=== PATIENT | male | born 1985 | race African-American/Black ===

== ENCOUNTER 2017-04-21 12:39 | Emergency (ER) | payer OTHER ==
[~2017-04-21] VITALS: Ht 185.4 cm; Wt 70.0 kg
[2017-04-21 12:42] VITALS: Ht 185.4 cm; Wt 70.0 kg
[2017-04-21] MEDS ORDERED: SOD CHLORIDE 0.9% 1,000 ML IV STA (14:17)
[2017-04-21 15:03] LABS: BASOPHILS % 0.3 % (0.0-2.0); EOSINOPHILS # 0.2 10^3/ul (0.0-0.5); EOSINOPHILS % 1.9 % (0.0-7.0); HEMATOCRIT 39.9 % (42.0-52.0); HEMOGLOBIN 13.7 g/dl (14.0-18.0); LYMPHOCYTES # 1.2 10^3/ul (0.8-2.9); LYMPHOCYTES % 14.1 % (15.0-51.0); MEAN CORPUSCULAR HEMOGLOBIN 29.2 pg (29.0-33.0); MEAN CORPUSCULAR HGB CONC 34.3 g/dl (32.0-37.0); MEAN CORPUSCULAR VOLUME 85.1 fl (82.0-101.0); MEAN PLATELET VOLUME 11.5 fl (7.4-10.4); MONOCYTE # 0.7 10^3/ul (0.3-0.9); MONOCYTES % 7.7 % (0.0-11.0); NEUTROPHILS % 75.7 % (39.0-77.0); PLATELET COUNT 174 10^3/UL (140-415); RED BLOOD COUNT 4.69 10^6/ul (4.70-6.10); RED CELL DISTRIBUTION WIDTH 13.3 % (11.5-14.5); WHITE BLOOD COUNT 8.6 10^3/ul (4.8-10.8)
[2017-04-21 15:13] LABS: ADD UMIC YES; UR ASCORBIC ACID 40 mg/dL (NEGATIVE); UR BACTERIA FEW /HPF (NONE SEEN); UR BILIRUBIN (Dip) NEGATIVE (NEGATIVE); UR BLOOD (Dip) NEGATIVE (NEGATIVE); UR CLARITY SLIGHTLY CLOUDY (CLEAR); UR COLOR YELLOW (YELLOW); UR GLUCOSE (Dip) NEGATIVE (NEGATIVE); UR KETONES (Dip) NEGATIVE (NEGATIVE); UR LEUKOCYTE ESTERASE (Dip) NEGATIVE Leu/ul (NEGATIVE); UR MUCUS MANY /HPF (NONE SEEN); UR NITRITE (Dip) NEGATIVE (NEGATIVE); UR RBC 9 /HPF (0-5); UR SPECIFIC GRAVITY (Dip) 1.035 (1.003-1.030); UR TOTAL PROTEIN (Dip) 1+ mg/dl (NEGATIVE); UR UROBILINOGEN (Dip) 2+ mg/dL (NEGATIVE)
[2017-04-21 15:16] LABS: ALBUMIN 3.8 g/dl (3.3-4.9); ALBUMIN/GLOBULIN RATIO 1.26; BILIRUBIN,INDIRECT 1.2 mg/dl (0-1.1); BILIRUBIN,TOTAL 1.2 mg/dl (0.2-1.3); CALCIUM 8.9 mg/dl (8.4-10.2); CREATININE 1.08 mg/dl (0.61-1.24); POTASSIUM 3.8 mmol/L (3.5-5.1); TOTAL PROTEIN 6.8 g/dl (6.1-8.1)
--- NOTE | 2017-04-21 15:21 | RADRPT ---
PROCEDURE: Scrotal ultrasound CLINICAL INDICATION: Right scrotal pain TECHNIQUE: Scrotal ultrasound was performed in multiple obliquities. Lovelace scale and color imaging was performed. Images were reviewed on high resolution PACS monitors. COMPARISON: None available FINDINGS: The testes are normal in size and echogenicity. There is normal flow to the bilateral testes. No t esticular mass or cyst is identified. No hydroceles are seen. The epididymides are normal. The re is no evidence for a varicocele. IMPRESSION: 1. Unremarkable scrotal ultrasound. RPTAT: KK .Mike Coleman MD, MD Date Time Electronically viewed and signed by .Mike Coleman MD, on 04/21/2017 15:20 .B/
--- NOTE | 2017-04-21 15:23 | RADRPT ---
PROCEDURE: CT abdomen and pelvis without IV contrast. CLINICAL INDICATION: Abdomen pain. TECHNIQUE: CT scan of the abdomen and pelvis was performed on a [address] scanner. The patient is scanned without IV contrast. Coronal and sagittal reformatted images were obtained from the axia l source images. Images were reviewed on a high-resolution PACS workstation. Total radiation dose: Total CTDIvol: 6.7 mGy. Total DLP: 382 mGy-cm. One or more of the following d ose reduction techniques were used: automated exposure control, adjustment of the mA and/or kV accor ding to patient size, or use of iterative reconstruction technique. COMPARISON: None available. FINDINGS: CT abdomen: The lung bases are clear. The heart is not enlarged without pericardial thickening or effusion. The liver is normal in size and density without focal hepatic mass or biliary dilatation. The splee n is normal in size. The stomach is partially collapsed but is grossly unremarkable. The pancreas as visualized is normal. The gallbladder is normal and there is no evidence of biliary dilatation. The adrenal glands are symmetrical and normal. 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 The kidneys are symmet rically normal bilaterally. No renal obstructive uropathy or mass lesion is seen.. The aorta is normal in caliber. There is no retroperitoneal lymphadenopathy. The melvin hepatis reg ion is clear. The bowel and mesentery, as visualized, are equally unremarkable. CT pelvis: The appendix is normal in the right lower quadrant. The small bowel loops situated within the pelvi s are unremarkable. The pelvic organs are normal. The pelvic sidewalls and inguinal regions are cl ear. No mass, lymphadenopathy is seen. No acute inflammation seen. The urinary bladder is normal. The surrounding osseous structures are unremarkable. No osteolytic or osteoblastic lesion is detect ed. IMPRESSION: 1. Unremarkable CT abdomen and pelvis without IV contrast. RPTAT: GG .Lambert Kent MD, MD Date Time Electronically viewed and signed by .Lambert Kent MD, on 04/21/2017 15:22 .Y/
[2017-04-21] MEDS ORDERED: IBUP-1542 PO (15:52)
[2017-04-21] MEDS ORDERED: HYDR-906 PO (15:52)
[2017-04-21] MEDS ORDERED: ONDA-43 PO (15:53)
--- NOTE | 2017-04-21 16:17 | ERD ---
ER Documentation Chief Complaint Date/Time DATE: 04/21/17 TIME: 16:11 Chief Complaint abd pain since yesterday,sent by urgent care for ct scan said he has hernia HPI This is a 32-year-old male presents to the ER stating he has a hernia. Patient noticed a bump last night and try to put it in himself, he states that it did go in a little bit however he still has a bump. This morning area was extremely painful patient went to an urgent care, tried to reduce hernia however was not able to and became worried about incarceration or strangulation. Patient did have nausea however denies vomiting. Patient denies any fevers or chills. Patient was given 2 [place] in the urgent care and states that this has made his pain better now. Patient works lifting heavy objects, however is unsure if this is how he got hernia. ROS 12 point review of systems was done, all negative except per HPI. Medications Home Meds Active Scripts Ondansetron Hcl* (Zofran*) 4 Mg Tab, 4 MG PO Q4H Y for NAUSEA AND OR VOMITING for 10 Days, TAB Prov:FRANKLIN MACHADO 04/21/17 Hydrocodone/Acetaminophen ([place] 5-325 Tablet) 1 Each Tablet, 1 TAB PO Q6H Y for PAIN, #20 TAB Prov:FRANKLIN MACHADO 04/21/17 Ibuprofen* (Motrin*) 600 Mg Tab, 600 MG PO Q6, #30 TAB Prov:FRANKLIN MACHADO C 04/21/17 Allergies Allergies: Coded Allergies: No Known Allergy (Unverified , 04/21/17) PMhx/Soc Medical and Surgical Hx: pt denies Surgical Hx History of Surgery: No Anesthesia Reaction: No Hx Neurological Disorder: No Hx Respiratory Disorders: No Hx Cardiac Disorders: No Hx Psychiatric Problems: No Hx Miscellaneous Medical Probl: Yes (rt inguinal hernia ) Hx Alcohol Use: No Hx Substance Use: No Hx Tobacco Use: No Smoking Status: Never smoker Physical Exam Vitals Vital Signs Date Time Temp Pulse Resp B/P Pulse Ox O2 Delivery O2 Flow Rate FiO2 04/21/17 12:42 98.1 60 18 123/72 99 Physical Exam GENERAL: The patient is well developed and appropriate for usual state of health , in no apparent distress. HEENT: Atraumatic CHEST: Clear to auscultation bilaterally. There are no rales, wheezes or rhonchi. HEART: Regular rate and rhythm. No murmurs, clicks, rubs or gallops. ABDOMEN: Soft, nontender and nondistended. Good bowel sounds. No rebound or guarding. No gross peritonitis. No gross organomegaly or masses. No Schafer sign or McBurney point tenderness. : patient has an inguinal hernia to the right inguinal canal which is reducible.there is some right testicular pain on palpation. no masses NEURO: Alert and oriented. SKIN: The skin is warm and dry. Result Diagram: 04/21/17 1430 04/21/17 1430 Results 24 hrs Laboratory Tests Test 04/21/17 14:30 White Blood Count 8.610^3/ul Red Blood Count 4.6910^6/ul Hemoglobin 13.7g/dl Hematocrit 39.9% Mean Corpuscular Volume 85.1fl Mean Corpuscular Hemoglobin 29.2pg Mean Corpuscular Hemoglobin Concent 34.3g/dl Red Cell Distribution Width 13.3% Platelet Count 06984^3/UL Mean Platelet Volume 11.5fl Neutrophils % 75.7% Lymphocytes % 14.1% Monocytes % 7.7% Eosinophils % 1.9% Basophils % 0.3% Nucleated Red Blood Cells % 0.0/100WBC Neutrophils # (Manual) 6.510^3/ul Lymphocytes # 1.210^3/ul Monocytes # 0.710^3/ul Eosinophils # 0.210^3/ul Basophils # 0.010^3/ul Nucleated Red Blood Cells # 0.010^3/ul Urine Color YELLOW Urine Clarity SLIGHTLY CLOUDY Urine pH 5.0 Urine Specific [place] 1.035 Urine Ketones NEGATIVEmg/dL Urine Nitrite NEGATIVEmg/dL Urine Bilirubin NEGATIVEmg/dL Urine Urobilinogen 2+mg/dL Urine Leukocyte Esterase NEGATIVELeu/ul Urine Microscopic RBC 9/HPF Urine Microscopic WBC 1/HPF Urine Bacteria FEW/HPF Urine Mucus MANY/HPF Urine Hemoglobin NEGATIVEmg/dL Urine Glucose NEGATIVEmg/dL Urine Total Protein 1+mg/dl Sodium Level 137mmol/L Potassium Level 3.8mmol/L Chloride Level 103mmol/L Carbon Dioxide Level 30mmol/L Anion Gap 8 Blood Urea Nitrogen 12mg/dl Creatinine 1.08mg/dl Glucose Level 81mg/dl Calcium Level 8.9mg/dl Total Bilirubin 1.2mg/dl Direct Bilirubin 0.00mg/dl Indirect Bilirubin 1.2mg/dl Aspartate Amino Transf (AST/SGOT) 19IU/L Alanine Aminotransferase (ALT/SGPT) 33IU/L Alkaline Phosphatase 43IU/L Total Protein 6.8g/dl Albumin 3.8g/dl Globulin 3.00g/dl Albumin/Globulin Ratio 1.26 Lipase 178U/L Current Medications Medications (Trade) Dose Ordered Sig/Levy Route PRN Reason Start Time Stop Time Status Last Admin Dose Admin Sodium Chloride (NS) 1,000 ml @ 1,000 mls/hr Q1H STAT IV 04/21/17 14:17 04/21/17 15:16 DC 04/21/17 15:17 [place] [id number] Radiology Main Line: [phone] DIAGNOSTIC IMAGING REPORT Patient: ENDER ZHANG : 1985 Age: 32 Sex: M MR #: [id number] DOS: 04/21/17 1417 Ordering MD: FRANKLIN MACHADO PA-C Location: [facility] Room/Bed: PROCEDURE: CT abdomen and pelvis without IV contrast. CLINICAL INDICATION: Abdomen pain. TECHNIQUE: CT scan of the abdomen and pelvis was performed on a [address] scanner. The patient is scanned without IV contrast. Coronal and sagittal reformatted images were obtained from the axial source images. Images were reviewed on a high-resolution PACS workstation. Total radiation dose: Total CTDIvol: 6.7 mGy. Total DLP: 382 mGy-cm. One or more of the following dose reduction techniques were used: automated exposure control, adjustment of the mA and/or kV according to patient size, or use of iterative reconstruction technique. COMPARISON: None available. FINDINGS: CT abdomen: The lung bases are clear. The heart is not enlarged without pericardial thickening or effusion. The liver is normal in size and density without focal hepatic mass or biliary dilatation. The spleen is normal in size. The stomach is partially collapsed but is grossly unremarkable. The pancreas as visualized is normal. The gallbladder is normal and there is no evidence of biliary dilatation. The adrenal glands are symmetrical and normal. 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 The kidneys are symmetrically normal bilaterally. No renal obstructive uropathy or mass lesion is seen.. The aorta is normal in caliber. There is no retroperitoneal lymphadenopathy. The melvin hepatis region is clear. The bowel and mesentery, as visualized, are equally unremarkable. CT pelvis: The appendix is normal in the right lower quadrant. The small bowel loops situated within the pelvis are unremarkable. The pelvic organs are normal. The pelvic sidewalls and inguinal regions are clear. No mass, lymphadenopathy is seen. No acute inflammation seen. The urinary bladder is normal. The surrounding osseous structures are unremarkable. No osteolytic or osteoblastic lesion is detected. IMPRESSION: 1. Unremarkable CT abdomen and pelvis without IV contrast. RPTAT: GG .Lambert Kent MD, Date Time Electronically viewed and signed by .Lambert Kent MD, on 04/21/2017 15:22 .Y/ CC: FRANKLIN MACHADO [place] [id number] Radiology Main Line: [phone] DIAGNOSTIC IMAGING REPORT Patient: ENDER ZHANG : 1985 Age: 32 Sex: M MR #: [id number] DOS: 04/21/17 1417 Ordering MD: FRANKLIN MACHADO PA-C Location: [facility] Room/Bed: PROCEDURE: Scrotal ultrasound CLINICAL INDICATION: Right scrotal pain TECHNIQUE: Scrotal ultrasound was performed in multiple obliquities. Lovelace scale and color imaging was performed. Images were reviewed on high resolution PACS monitors. COMPARISON: None available FINDINGS: The testes are normal in size and echogenicity. There is normal flow to the bilateral testes. No testicular mass or cyst is identified. No hydroceles are seen. The epididymides are normal. There is no evidence for a varicocele. IMPRESSION: 1. Unremarkable scrotal ultrasound. RPTAT: KK .Mike Coleman MD, MD Date Time Electronically viewed and signed by .Mike Coleman MD, MD on 2016 15:20 .B/ CC: FRANKLIN MACHADO Procedures/MDM Differential diagnosis includes but is not limited to appendicitis, hernia, testicular torsion, UTI, constipation, epididymitis. This is a 32-year-old male presents to the ER with lower abdominal pain, and physical examination patient does have an inguinal hernia which is reducible. At this time suspicion for strangulation or incarceration is low. Patient is afebrile and well-appearing. He will be sent home with ibuprofen, [place] and Zofran. He was told to follow-up with a surgeon for possible removal of the hernia. This patient was examined by myself and by my supervising physician Dr. Santos. Patient is stable for outpatient follow-up. He is to follow-up with his primary care doctor within 1-2 days return to ER sooner if symptoms worsen. My medical decision making was shared with the patient he understands and agrees with plan. Departure Diagnosis: Primary Impression: Inguinal hernia Condition: Stable Patient Instructions: Hernia (Inguinal, Ventral, Umbilical) Additional Instructions: Call your primary care doctor TOMORROW for an appointment during the next 1-2 days.See the doctor sooner or return here if your condition worsens before your appointment time. FRANKLIN MACHADO Apr 21, 2017 16:17
[2017-04-21 16:24] VITALS: BP 126/70; PULSE 75; RESP 18; TEMP 98.2
== END 2017-04-21 16:26 | disposition home or self-care (01) ==
LOC: FTE 12:39
DX: K40.90 Unilateral inguinal hernia, without obstruction or gangrene, not specified as recurrent (principal)
CPT/HCPCS: 36415; 74176; 76870; 80053; 81001; 83690; 85025; J7030; Z7502